=== PATIENT | female | born 1945 | race Caucasian/White ===

== ENCOUNTER 2017-12-08 18:24 | Emergency (ER) | payer OTHER, MEDICARE ==
[~2017-12-08] VITALS: Ht 149.1 cm; Wt 64.8 kg
[~2017-12-08 18:24] MED LIST: DIAZIDE PO; FLX10 PO; OXYC-90 PO; ZCRUNK
[2017-12-08 18:32] VITALS: TEMP 36.9; Ht 149.1 cm; Wt 64.8 kg
[2017-12-08] MEDS ORDERED: PROPARACAINE HCL 0.5% OP SOLN 15 ML BTL OP STA (18:42)
--- NOTE | 2017-12-08 18:47 | EMERGENCY ROOM VISIT NOTE ---
ED Visit Note First contact with patient: 18:38 CHIEF COMPLAINT: Foreign body of the eye HISTORY OF PRESENT ILLNESS: This 72-year-old female patient presents to the emergency department, ambulatory, complaining of pain and foreign body sensation in the left eye. Patient states the symptoms began spontaneously around lunchtime. She has attempted to flush the eye and use eyedrops without improvement in her symptoms. There is no known foreign body, but she did have a history of an eyelash embedded in the upper eyelid in the past with similar symptoms. The patient does not wear glasses or contacts. She does not feel that her vision is affected. There has been a constant moderate pain and irritation, redness and tearing in the eye. The vision has not been decreased over all. The patient rates the pain as 6/10. The patient has not had previous injuries to this eye. Tetanus shot is up to date. REVIEW OF SYSTEMS: A 6 system review of systems was completed with positives and pertinent negatives listed in the HPI. ALLERGIES: None MEDICATIONS: Zocor PMH: Hyperlipidemia SOCIAL HISTORY: The patient is from [place]. She is in town visiting with family. She denies drug, alcohol, tobacco use per PHYSICAL EXAM: Vital Signs: Reviewed Nurse's notes, vital signs stable. Visual acuity 20/40 - Right, 20/25 - Left. GENERAL: This is a 72-year-old white female , in no acute distress, but who is uncomfortable from the eye problem. Well- developed well-nourished. EYES: The pupils are equal round and reactive to light and accommodation. EOMs are full and without tenderness. There is watery discharge from the left eye which is injected. There is a small visible on the cornea. There is no foreign body visible under the eyelid after lid eversion. No foreign body was seen embedded in the cornea under slit lamp exam. The cornea was clear and no hyphema was seen. Fluorescein uptake was observed with ultraviolet light significant for a small, superficial corneal abrasion at the 6 o'clock position over the iris. EMERGENCY DEPARTMENT COURSE: I examined the patient. Alcaine 2 drops were placed in the patient's left eye. A slit lamp exam was performed as above. Was used to ensure there were no debris or foreign body noted. No foreign body on cotton swab. Ciloxan two drops was placed in the patient's left eye. Discharge instructions reviewed. The patient was discharged home in good condition. I attest that I have personally reviewed the patient's current medication list. Patient was found to have normal blood pressure on screening and does not require follow-up. Etiologies such as conjunctivitis, corneal abrasion, uveitis, glaucoma, periorbital cellulitis, orbital cellulitis, abscess, trauma, as well as others were entertained. DIAGNOSIS: Corneal abrasion of left eye without foreign body retained The chart was completed utilizing [employer] Speech voice recognition software. Grammatical errors, random word insertions, pronoun errors, and incomplete sentences are an occasional consequence of this system due to software limitations, ambient noise, and hardware issues. Any formal questions or concerns about the content, text, or information contained within the body of this dictation should be directly addressed to the provider for clarification. Current/Historical Medications Scheduled Cyclobenzaprine Hcl (Flexeril *), 10 MG PO TID PRN Oxycodone Ir (Roxicodone Ir), 1-2 TAB PO Q4-6HR PRN Simvastatin (Zocor Unkown Dose), DAILY [Diazide], 25 MG PO DAILY Allergies Coded Allergies: No Known Allergies (Unverified , NONE, 04/30/09) Vital Signs Date Time Temp Pulse Resp B/P (MAP) Pulse Ox O2 Delivery O2 Flow Rate FiO2 12/08/17 19:33 73 16 155/89 94 Room Air 12/08/17 18:32 36.9 77 18 151/80 94 Room Air Medications Administered Medications (Trade) Dose Ordered Sig/Enrique Route Start Time Stop Time Status Last Admin Dose Admin Ciprofloxacin HCl (Ciprofloxacin 0.3% Op Soln) 2 drops NOW STAT OP 12/08/17 19:22 12/08/17 19:23 DC 12/08/17 19:48 2 DROPS Departure Information Impression Primary Impression: Injury of conjunctiva and corneal abrasion of left eye without foreign body Dispostion Home / Self-Care Condition GOOD Referrals No Doctor, Assigned (PCP) Josef George MD Patient Instructions ED Eye Injury Corneal Abrasion, My [facility] Additional Instructions You have been treated in the Emergency Department today for your Corneal Abrasion. You have been prescribed Ciloxan eye drops. This is an antibiotic which will help to prevent an infection from developing in your affected eye. You should use 2 drops in the affected eye every 2 hours while awake for the first 2 days, then every 4 hours for the remaining 5 days. This is a total of a 7-day course for these antibiotic eye drops. For pain control, you can use the following [id number] medicines (if >12 yo): Acetaminophen(Tylenol) may be used for fever or pain. Use 1000mg every six hours as needed. Avoid using more than 3000mg in a 24 hour period. You should relax in a quiet, dark place for the rest of the day. You should wear sunglasses while outside for the next few days until your eyes are not as sensitive to the light. You should schedule a follow-up appointment in 2-3 days with your Primary Care Provider or established Eye Doctor ([employer]) for further evaluation and treatment of your Corneal Abrasion. Return to the Emergency Department if your current symptoms worsen despite treatment course outlined above, or if you develop any of the following symptoms : intractable pain, visual disturbances, loss of vision, increased redness, swelling, drainage, or if you develop a fever. Problem Qualifiers Primary Impression: Injury of conjunctiva and corneal abrasion of left eye without foreign body Encounter type: initial encounter Qualified Codes: S05.02XA - Injury of conjunctiva and corneal abrasion without foreign body, left eye, initial encounter
[2017-12-08] MEDS ORDERED: CIPROFLOXACIN HCL 0.3% OP SOLN 2.5 ML BTL OP STA (19:22)
--- NOTE | 2017-12-08 19:28 | EMERGENCY ROOM VISIT NOTE ---
ED Visit Note First contact with patient: 18:38 The patient was seen and examined with Cinthya Talamantes PA-C. I agree with the history, physical and findings. Please see the note for disposition and details.
[2017-12-08 19:33] VITALS: BP 155/89; PULSE 73; O2SAT 94
== END 2017-12-08 19:51 | disposition home or self-care (01) ==
LOC: C.EDB 18:26 → C.EDD 19:51
DX: S05.02XA Injury of conjunctiva and corneal abrasion without foreign body, left eye, initial encounter (principal); X58.XXXA Exposure to other specified factors, initial encounter; E78.5 Hyperlipidemia, unspecified; Z79.899 Other long term (current) drug therapy